=== PATIENT | female | born 1965 | race Caucasian/White ===

== ENCOUNTER 2017-07-01 08:10 | Day surgery (SDC) | payer OTHER ==
[~2017-07-01] VITALS: Ht 167.6 cm; Wt 86.2 kg
[2017-07-01] MEDS ORDERED: BUPIVACAINE-MPF 0.25% 30 ML VIAL INJ ONE (09:08)
[2017-07-01] MEDS ORDERED: MIDAZOLAM 2 MG/2 ML VIAL ONE (09:10)
[2017-07-01] MEDS ORDERED: GELATIN SPONGE 100 1 SPG TP ONE (09:11)
[2017-07-01] MEDS ORDERED: MEPERIDINE 50 MG/ML SYR ONE (09:11)
[2017-07-01] MEDS ORDERED: fentaNYL 0.05 MG/ML VIAL ONE (09:11)
[2017-07-01] MEDS ORDERED: LACTATED RINGERS 1,000 ML IV SCH (09:54)
[2017-07-01] MEDS ORDERED: ONDANSETRON 4 MG/2 ML VIAL IVP PRN (09:55)
[2017-07-01] MEDS ORDERED: HYDROmorphone 1 MG/ML AMP IVP PRN (09:55)
[2017-07-01] MEDS ORDERED: MEPERIDINE 25 MG/ML SYR IVP PRN (09:55)
[2017-07-01] MEDS ORDERED: diphenhydrAMINE 50 MG/ML VIAL IVP PRN (09:55)
== END 2017-07-01 11:40 | disposition home or self-care (01) ==
LOC: MDS 08:10 → MMU 08:11 → MDS 11:40
PROVIDERS: ATTEND Surgery
DX: D49.89 Neoplasm of unspecified behavior of other specified sites (principal); I10 Essential (primary) hypertension; J44.9 Chronic obstructive pulmonary disease, unspecified; K21.9 Gastro-esophageal reflux disease without esophagitis; M19.90 Unspecified osteoarthritis, unspecified site; M06.9 Rheumatoid arthritis, unspecified; F17.210 Nicotine dependence, cigarettes, uncomplicated; Z79.899 Other long term (current) drug therapy; Z98.890 Other specified postprocedural states
CPT/HCPCS: 11623; 71010; 88304; 93005; J0690; J2250; J3010; J3490; J7060; J7120; J2175